=== PATIENT | female | born 1930 | race Hispanic/Latino ===

== ENCOUNTER 2017-12-07 07:47 | Emergency (ER) | payer MEDICARE ==
[~2017-12-07 07:47] MED LIST: CLOP75TA32 PO; FURO20TA4 PO; MULT-1258 PO; POTA10CA44 PO; SIMV20TA6 PO; TRAM50TA4 PO; TRAV2.5D OU
[2017-12-07 08:14] LABS: BASOPHILS % (AUTO) 0.9 % (0.0-5.0); EOSINOPHILS % (AUTO) 1.1 % (0.0-8.0); HEMATOCRIT 43.3 % (36-48); LYMPHOCYTES % (AUTO) 15.9 % (21.0-51.0); MEAN CORPUSCULAR HEMOGLOBIN 30.7 pg (27.0-33.0); MEAN CORPUSCULAR VOLUME 93.2 fL (79-99); MONOCYTES % (AUTO) 3.6 % (3.0-13.0); NEUTROPHILS % (AUTO) 78.5 % (40.0-77.0); PLATELET COUNT (AUTO) 200 K/uL (130-400); RED BLOOD CELL COUNT(AUTO) 4.64 MIL/uL (4.00-5.50); RED CELL DISTRIBUTION WIDTH 15.5 % (11.0-15.5)
[2017-12-07 08:24] LABS: CREATININE 0.9 mg/dL (0.5-1.5); POTASSIUM 3.6 mmol/L (3.5-5.1)
[2017-12-07 08:29] LABS: ALBUMIN 3.4 g/dL (3.5-5.0); BILIRUBIN,TOTAL 0.4 mg/dL (0.2-1.0); TOTAL PROTEIN, SERUM 7.8 g/dL (6.0-8.3)
[2017-12-07] MEDS ORDERED: LIDOCAINE HCL-MPF 1% 2ML VIAL ONE (08:31)
[2017-12-07] MEDS ORDERED: TETANUS/DIPHTHERIA TOXOID [ADULT] 0.5 ML VIAL IM ONE (08:49)
[2017-12-07] MEDS ORDERED: SODIUM CHLORIDE 0.9% 250 ML IV ONE (09:39)
== END 2017-12-07 10:40 | disposition home or self-care (01) ==
LOC: EDH 07:47
DX: S01.81XA Laceration without foreign body of other part of head, initial encounter (principal); S05.12XA Contusion of eyeball and orbital tissues, left eye, initial encounter; S80.02XA Contusion of left knee, initial encounter; I10 Essential (primary) hypertension; W18.39XA Other fall on same level, initial encounter; Y93.01 Activity, walking, marching and hiking; Y92.89 Other specified places as the place of occurrence of the external cause; Y99.8 Other external cause status
CPT/HCPCS: 12011; 36415; 70450; 70486; 72125; 80053; 85025; 90471; 90714; 93005; 99285; J3490; J7030

== ENCOUNTER 2017-12-12 09:58 | Emergency (ER) | payer MEDICARE | END 2017-12-12 11:53 | disposition home or self-care (01) | LOC: EDH 09:58 | DX: S01.112D Laceration without foreign body of left eyelid and periocular area, subsequent encounter (principal); I10 Essential (primary) hypertension; X58.XXXD Exposure to other specified factors, subsequent encounter | CPT/HCPCS: 99281 ==